=== PATIENT | male | born 2000 | race African-American/Black ===

== ENCOUNTER 2024-11-23 08:54 | Emergency (ER) | payer MEDICAID ==
[~2024-11-23] VITALS: Ht 167.6 cm; Wt 77.1 kg
[2024-11-23] MEDS ORDERED: ONDANSETRON HCL/PF 4 MG/2 ML VIAL ONE (09:22)
[2024-11-23] MEDS ORDERED: FAMOTIDINE/PF INJ 20 MG/2 ML VIAL IV ONE (09:22)
[2024-11-23] MEDS: IV NS 0.9% 1,000 ML BAG IV ONE (09:26)
[2024-11-23] MEDS: FAMOTIDINE/PF INJ 20 MG/2 ML VIAL IV ONE (09:27)
[2024-11-23] MEDS ORDERED: PANTOPRAZOLE 40 MG/PACK PACK PO ONE (09:30)
[2024-11-23] MEDS ORDERED: ONDANSETRON HCL/PF 4 MG/2 ML VIAL IVP ONE (09:30)
[2024-11-23] MEDS ORDERED: diphenhydrAMINE HCL 50 MG/ML VIAL ONE (09:31)
[2024-11-23] MEDS ORDERED: METOCLOPRAMIDE HCL 10 MG/2 ML VIAL ONE (09:31)
[2024-11-23] MEDS: METOCLOPRAMIDE HCL 10 MG/2 ML VIAL IV ONE (09:35)
[2024-11-23] MEDS: diphenhydrAMINE HCL 50 MG/ML VIAL IV ONE (09:36)
[2024-11-23 09:56] LABS: BASOPHILS % (AUTO) 0.1 % (0.0-2.0); EOSINOPHILS % (AUTO) 0.2 % (0.0-6.0); HEMATOCRIT 46 % (39-51); HEMOGLOBIN 15.7 g/dL (13.5-17.5); LYMPHOCYTES # (AUTO) 2.5 K/uL (0.8-4.8); LYMPHOCYTES % (AUTO) 14.3 % (20.0-44.0); MEAN CORPUSCULAR HEMOGLOBIN 30 PG (26.0-33.0); MEAN CORPUSCULAR HGB CONC 34 g/dl (31.0-36.0); MEAN CORPUSCULAR VOLUME 89 fL (80-96); MONOCYTES # (AUTO) 0.7 K/uL (0.1-1.30); MONOCYTES % (AUTO) 3.8 % (2.0-12.0); NEUTROPHILS # (AUTO) 14.3 K/uL (1.8-8.9); NEUTROPHILS % (AUTO) 81.6 % (43.0-81.0); PLATELET COUNT (AUTO) 495 K/uL (150-450); RED BLOOD CELL COUNT(AUTO) 5.17 MIL/uL (4.5-6.0); WHITE BLOOD COUNT (AUTO) 17.5 K/uL (4.3-11.0)
[2024-11-23 10:18] LABS: ALBUMIN 4.1 g/dL (3.4-5.0); BILIRUBIN,DIRECT 0.1 mg/dL (0.0-0.2); BILIRUBIN,TOTAL 0.5 mg/dL (0.2-1.0); CALCIUM, SERUM 10.1 mg/dL (8.5-10.1); CREATININE 1.5 mg/dL (0.6-1.3); POTASSIUM 3.6 mmol/L (3.5-5.1); TOTAL PROTEIN, SERUM 8.4 g/dL (6.4-8.2)
[2024-11-23] MEDS ORDERED: ONDA4TAB5 PO (10:44)
[2024-11-23 12:01] VITALS: BP 138/84; TEMP 98; O2SAT 99
== END 2024-11-23 12:01 | disposition home or self-care (01) ==
LOC: ER 09:00
DX: R11.10 Vomiting, unspecified (principal); R07.9 Chest pain, unspecified; R10.13 Epigastric pain; I49.8 Other specified cardiac arrhythmias; K21.9 Gastro-esophageal reflux disease without esophagitis
CPT/HCPCS: 99285; 96374; 96375; 71045; 96361; 93005; 85025; 80048; 83690; 80076; 36415; 84484; J1200; J3490; J2765; J7030; J2405